=== PATIENT | male | born 1980 | race Hispanic/Latino ===

== ENCOUNTER 2018-11-29 14:39 | Emergency (ER) | payer OTHER ==
[2018-11-29 15:09] VITALS: BP 158/107
--- NOTE | 2018-11-29 15:09 | Emergency Department Report ---
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
--- NOTE | 2018-11-29 16:09 | Vascular Lab Report ---
DUPLEX DOPPLER LOWER EXTREMITY VEINS, LEFT INDICATION: Left lower extremity pain for 2 days. TECHNIQUE: Duplex doppler imaging was performed through the veins of the left lower extremity using venous compr ession and other maneuvers. COMPARISON: No relevant prior imaging study available. FINDINGS: Left Common femoral vein: Negative. Left Superficial femoral vein: Negative. Left Popliteal vein: Negative. Left Calf veins: Negative. Additional findings: None.. IMPRESSION: No sonographic evidence for DVT in the left lower extremity. Signer Name: Stephen Antoine Jr, MD Signed: 11/29/2018 4:05 PM Workstation Name: [id number]
--- NOTE | 2018-11-29 18:03 | Emergency Department Report ---
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 We worse with standing and various range of motion. Reports no lower extremity swelling, numbness or tingling, no history of any DVTs, no trauma. Reports no chest pain, palpitations, fever, chills, sweats. No source of breath. -: Sudden, days(s) (one-day) Type of Injury: unknown Place: work Severity: mild Associated Symptoms: ambulatory - Related Data Previous Rx's Medication Instructions Recorded Last Taken Type Ketorolac [Toradol] 10 mg PO Q6H PRN #15 tablet 11/29/18 Unknown Rx Allergies Allergy/AdvReac Type Severity Reaction Status Date / Time acetaminophen [From Percocet] Allergy Unknown Verified 11/29/18 14:52 oxycodone [From Percocet] Allergy Unknown Verified 11/29/18 14:52 ED Review of Systems ROS: Stated complaint: LT LEG PAIN Other details as noted in HPI Comment: All other systems reviewed and negative Constitutional: denies: chills, fever Eyes: denies: eye pain, eye discharge, vision change ENT: denies: ear pain, throat pain Respiratory: denies: cough, shortness of breath, wheezing Cardiovascular: denies: chest pain, palpitations Endocrine: no symptoms reported Gastrointestinal: denies: abdominal pain, nausea, diarrhea Genitourinary: denies: urgency, dysuria Musculoskeletal: denies: back pain, joint swelling, arthralgia Skin: denies: rash, lesions Neurological: denies: headache, weakness, paresthesias Psychiatric: denies: anxiety, depression Hematological/Lymphatic: denies: easy bleeding, easy bruising ED Past Medical Hx - Past Medical History Additional medical history: "clostiotoma" - Surgical History Hx Appendectomy: Yes Additional Surgical History: ear surgery x 7 - Social History Smoking Status: Never Smoker Substance Use Type: None - Medications Home Medications: Home Medications Medication Instructions Recorded Confirmed Last Taken Type Ketorolac [Toradol] 10 mg PO Q6H PRN #15 tablet 11/29/18 Unknown Rx ED Physical Exam - General Limitations: No Limitations General appearance: alert, in no apparent distress - Head Head exam: Present: atraumatic, normocephalic - Eye Eye exam: Present: normal appearance - ENT ENT exam: Present: mucous membranes moist - Neck Neck exam: Present: normal inspection - Respiratory Respiratory exam: Present: normal lung sounds bilaterally. Absent: respiratory distress - Cardiovascular Cardiovascular Exam: Present: regular rate, normal rhythm. Absent: systolic murmur, diastolic murmur, rubs, gallop - GI/Abdominal GI/Abdominal exam: Present: soft, normal bowel sounds - Rectal Rectal exam: Present: deferred - Extremities Exam Extremities exam: Present: normal inspection - Expanded Lower Extremity Exam Left Knee exam: Present: normal inspection, tenderness (tenderness in the popliteal region with minimal swelling. Palpating the area suspicious for a likely small mass. Normal varus and valgus. Drawer test is negative), full knee extension. Absent: erythema, pain w/ pronation/supination, posterior draw sign, pain/laxity with valgus, pain/laxity with varus - Back Exam Back exam: Present: normal inspection, full ROM - Neurological Exam Neurological exam: Present: alert, oriented X3, CN II-XII intact, normal gait - Psychiatric Psychiatric exam: Present: normal affect, normal mood - Skin Skin exam: Present: warm, dry, intact, normal color. 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 No evidence of any DVT on on ultrasound. Discussed the likelihood of it being a Chahal's cyst. Advised the need to follow with orthopedic definitive management. We utilize some NSAIDs for the immediacy Critical care attestation.: If time is entered above; I have spent that time in minutes in the direct care of this critically ill patient, excluding procedure time. ED Disposition Clinical Impression: Leg pain, posterior Disposition: DC-01 TO HOME OR SELFCARE Is pt being admited?: No Does the pt Need Aspirin: No Condition: Stable Instructions: Chahal's Cyst (ED) Referrals: ELMA STEINBERG MD [Primary Care Provider] - 3-5 Days ESPERANZA MONACO MD [Staff Physician] - 3-5 Days
== END 2018-11-29 18:57 | disposition home or self-care (01) ==
LOC: ED 14:39
DX: M25.562 Pain in left knee (principal); M79.89 Other specified soft tissue disorders; Z90.89 Acquired absence of other organs; Z79.899 Other long term (current) drug therapy; Z88.6 Allergy status to analgesic agent; Z88.8 Allergy status to other drugs, medicaments and biological substances
CPT/HCPCS: 99283